=== PATIENT | male | born 1950 | race Caucasian/White ===

== ENCOUNTER → 2016-12-17 | Outpatient (CLI) | payer OTHER ==
[~2016-12-17] MED LIST: ALPR-138 PO; ASPI81 PO; LORT10TA PO; NORV5TAB PO
--- NOTE | 2016-12-23 09:13 | RSPPFT ---
DATE OF PROCEDURE: 12/17/16 COMMENTS: Spirometry demonstrates an FEV1 of 2.6 at 84% of predicted, FVC of 3.5 at 78%, FEF 25-75 at 68%. Post-bronchodilator study demonstrated no significant change. Lung volumes demonstrated a mildly increased RV/TLC ratio indicating hyperinflation and air trapping. Diffusion capacity is mildly reduced. Flow volume loops appear unremarkable. IMPRESSION: 1. Essentially normal pulmonary function study. 2. No significant change following use of bronchodilator. 3. Mild reduction in diffusion capacity.
== END ==
LOC: HRSP 07:39
DX: J44.9 Chronic obstructive pulmonary disease, unspecified (principal); J18.9 Pneumonia, unspecified organism
CPT/HCPCS: 94060; 94726; 94729

== ENCOUNTER → 2018-02-04 | Day surgery (SDC) | payer OTHER ==
[~2018-02-04] VITALS: Ht 177.8 cm; Wt 88.0 kg
[~2018-02-04] MED LIST changes: -ALPR-138 PO; +ALPR.5 PO; +AMLO10TA2 PO; +ASPI1TAB57 PO; -ASPI81 PO; +CHLORHEXIDINE GLUCONATE 2 % 1 PACK (2 CLOTHS) TOPICAL PRN; +CYCLOPENTOLATE HCL 1% OPHT SOLN 2 ML BTL LEFT EYE SCH; +FLURBIPROFEN 0.03% OPHT SOLN 2.5 ML BTL LEFT EYE SCH; +FLUTI44I INH; +HYALURONIDASE/LIDOCAINE/BUPIVACAINE 5 ML SYR LEFT EYE ONE; +HYDR-3583 PO; +HYDR25TA5 PO; +IPRA17I INH; +LACTATED RINGER'S 1000 ML IV PRN; +LIDOCAINE HCL 1% PF 30 ML VIAL ONE; -LORT10TA PO; +METOPROLOL TARTRATE 25 MG TAB PO PRN; +MULTTAB67 PO; +NALO1SPR NASAL; -NORV5TAB PO; +PHENYLEPHRINE HCL 10% OPTH SOLN 5 ML BTL LEFT EYE SCH; +POVIDONE IODINE 5% (ANTISEPSIS KIT) 4 APPLICATIONS EACH NARE PRN; +PROPARACAINE HCL 0.5% OPHT SOLN 15 ML BTL LEFT EYE ONE; +PROPOFOL 200 MG/20 ML AMP ONE; +SODIUM CHLORID 0.9% 500 ML IV PRN; +TOBRAMYCIN/DEXAMETHASONE OPTH OINT 3.5 GM TUBE ONE; +TROPICAMIDE 1% OPHT SOLN 15 ML BTL LEFT EYE SCH; +VENTAER INH; +VITA1000 PO
[2018-02-04 08:39] VITALS: PULSE 61
[2018-02-04 08:49] VITALS: PULSE 76
[2018-02-04] MEDS: CYCLOPENTOLATE HCL 1% OPHT SOLN 2 ML BTL LEFT EYE SCH ×4 (09:20→09:35)
[2018-02-04] MEDS: TROPICAMIDE 1% OPHT SOLN 15 ML BTL LEFT EYE SCH ×4 (09:20→09:35)
[2018-02-04] MEDS: FLURBIPROFEN 0.03% OPHT SOLN 2.5 ML BTL LEFT EYE SCH ×4 (09:20→09:35)
[2018-02-04] MEDS: PHENYLEPHRINE HCL 10% OPTH SOLN 5 ML BTL LEFT EYE SCH ×4 (09:20→09:35)
[2018-02-04 10:22] VITALS: TEMP 97.5
--- NOTE | 2018-02-04 10:25 | MP ---
cc: Dominick Seals MD DATE OF OPERATION: 02/04/2018 [facility] NUMBER: [id number] PREOPERATIVE DIAGNOSIS: Visually significant cataract left eye. POSTOPERATIVE DIAGNOSIS: Visually significant cataract left eye. OPERATION: Phacoemulsification with posterior chamber lens implantation, left eye. SURGEON: Dominick Seals MD ANESTHESIA: Retrobulbar with MAC. COMPLICATIONS: None. PROCEDURE: After informed consent was obtained, the patient was brought into the operative suite and placed on appropriate monitors by the Anesthesia Service. The patient had received a prior retrobulbar injection of local anesthetic by the Anesthesia Service in the holding area. The patient's operative eye was then prepped and draped in the usual sterile fashion. A wire lid speculum was placed. A paracentesis incision was made in the peripheral cornea with a 1 mm reyna keratome. The anterior chamber was filled with viscoelastic. The anterior chamber was then entered through a stepped, clear corneal incision using a sharp 3 mm reyna keratome. A circular tear capsulorrhexis was then made with a bent needle cystitome. Following hydrodissection of the lens nucleus with balanced saline, phaco-emulsification of the nucleus was performed using a modified chopping technique. The remaining cortex was removed with irrigation/aspiration. The prior two procedures were both performed using the handpieces of the [employer] phaco unit. The capsular bag was then filled with viscoelastic. The intraocular lens was then injected into the capsular bag and positioned. The type of intraocular lens and its power can be found elsewhere in this chart. The remaining viscoelastic was then removed from the anterior chamber with the IA handpiece. The anterior chamber was reformed with balanced saline. The wound was then closed securely with stromal hydration. It was found to be watertight to an intraocular pressure of at least 30 mmHg by palpation. A small amount of balanced salt solution was then removed through the paracentesis site and the intraocular pressure at the end of the case was approximately 20 by palpation. All drapes were then removed. TobraDex ointment was then placed in the eye, which was closed beneath a semi-pressure patch dressing. The patient tolerated this procedure well and left the operating room awake and alert. The patient is to follow-up in my office in the morning. [id number] again retrobulbar filling and all those blanks with the left eye today. MD TEA Hadley , 10:17 AM , 10:23 AM
[2018-02-04 10:43] VITALS: BP 122/70; PULSE 60; RESP 16; O2SAT 98
== END | disposition home or self-care (01) ==
LOC: PHSDC 07:59
PROVIDERS: ATTEND Optometrist Occupational Vision
DX: H25.812 Combined forms of age-related cataract, left eye (principal)
CPT/HCPCS: 00142; 66984; J7040; V2632